=== PATIENT | female | born 1990 | race Caucasian/White ===

== ENCOUNTER 2016-06-01 07:44 | Inpatient (IN) | payer MEDICAID ==
[~2016-06-01] VITALS: Ht 172.7 cm; Wt 105.5 kg
[2016-06-01] VITALS (47 sets, daily range): BP systolic 93–136; BP diastolic 42–88; PULSE 81–104; TEMP 97.7–98.6
[~2016-06-01 07:44] MED LIST: AMOXICILLIN 50500 MG PO; FLAGYL500 MG; MOTRIN 800800 MG/TAB PO; NAPROSYN500 MG PO; NO HOME MEDICATIONS; NORCO 325 MG-51 TAB PO; PEN-VEE K500 MG PO; PRENATAL1 TA7 PO
[2016-06-01 08:22] LABS: AMPHETAMINE URINE NEGATIVE; BARBITURATES URINE NEGATIVE; BENZODIAZEPINES URINE NEGATIVE; BUPRENORPHINE URINE NEGATIVE; METHADONE URINE NEGATIVE; OPIATES URINE NEGATIVE; OXYCODONE URINE NEGATIVE; PHENCYCLIDINE URINE NEGATIVE; PROPOXYPHENE URINE NEGATIVE; THC CANNABINOIDS URINE NEGATIVE
[2016-06-01 08:35] LABS: BASO % 0.3 % (0.0-2.0); EOS # 0.1 (0.0-0.7); EOS % 1.1 % (0-4.0); GRAN # 8.9 (1.4-6.5); GRAN % 79.4 % (42.2-75.2); LYMPH # 1.7 (1.2-3.4); MEAN CELL VOLUME 83 fl (80.0-100.0); MEAN CORPUSCULAR HGB CONC 32 g/dl (33.0-37.0); MEAN PLATELET VOLUME 10.9 fl (7.4-10.4); MONO # 0.4 (0.1-0.6); MONO % 3.4 % (1.7-9.3); PLATELET COUNT 217 K/mm3 (130-400); RED BLOOD COUNT 3.87 M/mm3 (4.10-5.30); REDCELL DISTRIBUTION WIDTH-CV 15.4 % (11.5-14.5); WHITE BLOOD COUNT 11.2 K/mm3 (4.8-10.8)
[2016-06-01 08:37] LABS: HEMATOCRIT 32.2 % (37.0-47.0); HEMOGLOBIN 10.3 g/dl (12.5-16.0); MEAN CORPUSCULAR HEMOGLOBIN 27 pg (27.0-31.0)
[2016-06-02 01:50] VITALS: BP 105/58; PULSE 89; TEMP 97.8
[2016-06-02 07:20] VITALS: BP 105/54; PULSE 77; TEMP 97.8
[2016-06-02] MEDS ORDERED: PERCOCET 325 MG1 TA2 PO (07:44)
[2016-06-02] MEDS ORDERED: MOTRIN 800800 MG/TAB PO (07:44)
[2016-06-02 11:18] VITALS: BP 106/50; PULSE 96; TEMP 97.5
[2016-06-02 12:32] LABS: BASO # 0.1 (0.0-0.2); BASO % 0.5 % (0.0-2.0); EOS # 0.1 (0.0-0.7); EOS % 0.8 % (0-4.0); GRAN % 76.9 % (42.2-75.2); LYMPH # 2.1 (1.2-3.4); LYMPH % 15.8 % (20.0-51.0); MEAN CELL VOLUME 85 fl (80.0-100.0); MEAN CORPUSCULAR HGB CONC 32 g/dl (33.0-37.0); MEAN PLATELET VOLUME 11.5 fl (7.4-10.4); MONO # 0.7 (0.1-0.6); MONO % 5.3 % (1.7-9.3); PLATELET COUNT 214 K/mm3 (130-400); RED BLOOD COUNT 4.19 M/mm3 (4.10-5.30); REDCELL DISTRIBUTION WIDTH-CV 15.4 % (11.5-14.5)
[2016-06-02 12:37] LABS: HEMATOCRIT 35.4 % (37.0-47.0); HEMOGLOBIN 11.4 g/dl (12.5-16.0); MEAN CORPUSCULAR HEMOGLOBIN 27 pg (27.0-31.0)
[2016-06-02 20:00] VITALS: BP 115/56; PULSE 78; TEMP 97.5
[2016-06-03 07:40] VITALS: BP 120/80; PULSE 82; TEMP 98.3
== END 2016-06-03 17:20 | disposition home or self-care (01) | DRG 774 ==
LOC: LDR 07:44 → OB 18:11
PROVIDERS: Obstetrics & Gynecology
PROC: 10E0XZZ Delivery of Products of Conception, External Approach (ICD-10-PCS; principal; 2016-06-01)
PROC: 0UQMXZZ Repair Vulva, External Approach (ICD-10-PCS; 2016-06-01)
PROC: 3E033VJ Introduction of Other Hormone into Peripheral Vein, Percutaneous Approach (ICD-10-PCS; 2016-06-01)
DX: O48.0 Post-term pregnancy (principal); O72.1 Other immediate postpartum hemorrhage; O69.81X0 Labor and delivery complicated by cord around neck, without compression, not applicable or unspecified; O71.82 Other specified trauma to perineum and vulva; Z3A.40 40 weeks gestation of pregnancy; Z37.0 Single live birth
CPT/HCPCS: G0479; J2210; J2590; J2790; J2795; J7120

== ENCOUNTER 2016-06-05 16:16 | Emergency (ER) | payer MEDICAID ==
[~2016-06-05] VITALS: Ht 172.7 cm; Wt 100.9 kg
[2016-06-05 16:16] VITALS: TEMP 97.9
[~2016-06-05 16:16] MED LIST changes: +PERCOCET 325 MG1 TA2 PO
[2016-06-05] MEDS ORDERED: IBU800 M1 PO (16:34)
[2016-06-05 16:53] LABS: BASO % 0.3 % (0.0-2.0); EOS # 0.2 (0.0-0.7); EOS % 1.4 % (0-4.0); GRAN # 9.9 (1.4-6.5); GRAN % 84.3 % (42.2-75.2); LYMPH # 1.2 (1.2-3.4); LYMPH % 10.4 % (20.0-51.0); MEAN CELL VOLUME 83 fl (80.0-100.0); MEAN CORPUSCULAR HGB CONC 33 g/dl (33.0-37.0); MEAN PLATELET VOLUME 10.4 fl (7.4-10.4); MONO # 0.4 (0.1-0.6); MONO % 3.3 % (1.7-9.3); PLATELET COUNT 229 K/mm3 (130-400); RED BLOOD COUNT 3.84 M/mm3 (4.10-5.30); REDCELL DISTRIBUTION WIDTH-CV 15.3 % (11.5-14.5); WHITE BLOOD COUNT 11.8 K/mm3 (4.8-10.8)
[2016-06-05 16:54] LABS: HEMATOCRIT 31.9 % (37.0-47.0); HEMOGLOBIN 10.4 g/dl (12.5-16.0); MEAN CORPUSCULAR HEMOGLOBIN 27 pg (27.0-31.0)
[2016-06-05 16:58] LABS: PH 8 (5-8); SQUAMOUS EPITHELIAL None Seen /hpf; URINE APPEARANCE Clear; URINE BACTERIA None Seen /hpf; URINE BILIRUBIN Negative (NEGATIVE); URINE BLOOD 1+ (NEGATIVE); URINE COLOR Yellow; URINE GLUCOSE Negative (NEGATIVE); URINE KETONE Negative (NEGATIVE); URINE UROBILINOGEN Negative (NEGATIVE); URINE WBC 0-2 /hpf
[2016-06-05 17:11] LABS: ADJUSTED CALCIUM 9.7 mg/dL (8.4-10.2); ALBUMIN 3.4 gm/dL (3.5-5.0); BILIRUBIN,TOTAL 0.5 mg/dL (0.0-1.0); CALCIUM 9.2 mg/dL (8.4-10.2); CREATININE, serum 0.67 mg/dL (0.52-1.25); POTASSIUM 3.7 mmol/L (3.4-5.0); TOTAL PROTEIN 6.9 gm/dL (6.4-8.2)
[2016-06-05 19:15] VITALS: BP 119/74; PULSE 85
[2016-06-05] MEDS ORDERED: ULTRAM 50MG TAB50 MG PO (19:16)
== END 2016-06-05 19:35 | disposition home or self-care (01) ==
LOC: COL.ER 16:16
PROVIDERS: Emergency Medicine
DX: O99.89 Other specified diseases and conditions complicating pregnancy, childbirth and the puerperium (principal); R10.11 Right upper quadrant pain; R10.31 Right lower quadrant pain
CPT/HCPCS: J1170; J1885; Q9967

== ENCOUNTER 2016-09-02 17:01 | Emergency (ER) | payer MEDICAID ==
[~2016-09-02] VITALS: Ht 172.7 cm; Wt 90.9 kg
[~2016-09-02 17:01] MED LIST changes: +IBU800 M1 PO; +ULTRAM 50MG TAB50 MG PO
[2016-09-02 17:02] VITALS: BP 109/54; PULSE 77; TEMP 97.5
[2016-09-02] MEDS ORDERED: BRINTELLIX10 PO (17:05)
[2016-09-02 17:33] LABS: PH 5 (5-8); URINE APPEARANCE Hazy; URINE BACTERIA None Seen /hpf; URINE BILIRUBIN Negative (NEGATIVE); URINE BLOOD Negative (NEGATIVE); URINE COLOR Yellow; URINE GLUCOSE Negative (NEGATIVE); URINE KETONE Negative (NEGATIVE); URINE UROBILINOGEN Negative (NEGATIVE); URINE WBC 0-2 /hpf
[2016-09-02 17:46] LABS: BASO % 0.5 % (0.0-2.0); EOS # 0.2 (0.0-0.7); EOS % 2.7 % (0-4.0); GRAN # 4.4 (1.4-6.5); GRAN % 57.1 % (42.2-75.2); HEMATOCRIT 39.4 % (37.0-47.0); HEMOGLOBIN 12.6 g/dl (12.5-16.0); LYMPH # 2.5 (1.2-3.4); LYMPH % 32.7 % (20.0-51.0); MEAN CELL VOLUME 82 fl (80.0-100.0); MEAN CORPUSCULAR HEMOGLOBIN 26 pg (27.0-31.0); MEAN CORPUSCULAR HGB CONC 32 g/dl (33.0-37.0); MONO # 0.5 (0.1-0.6); MONO % 6.7 % (1.7-9.3); PLATELET COUNT 229 K/mm3 (130-400); REDCELL DISTRIBUTION WIDTH-CV 15.3 % (11.5-14.5); WHITE BLOOD COUNT 7.8 K/mm3 (4.8-10.8)
[2016-09-02 17:56] LABS: ADJUSTED CALCIUM 9.4 mg/dL (8.4-10.2); ALBUMIN 3.9 gm/dL (3.5-5.0); BILIRUBIN,TOTAL 0.5 mg/dL (0.0-1.0); CALCIUM 9.3 mg/dL (8.4-10.2); CREATININE, serum 0.73 mg/dL (0.52-1.25); POTASSIUM 3.8 mmol/L (3.4-5.0); TOTAL PROTEIN 6.9 gm/dL (6.4-8.2)
[2016-09-02] MEDS ORDERED: BENTYL 20MG20 MG/TAB PO (18:01)
== END 2016-09-02 18:08 | disposition home or self-care (01) ==
LOC: COL.ER 17:01
PROVIDERS: Emergency Medicine
DX: R10.84 Generalized abdominal pain (principal)
CPT/HCPCS: J0500

== ENCOUNTER 2016-09-06 18:25 | Emergency (ER) | payer MEDICAID ==
[~2016-09-06] VITALS: Ht 172.7 cm; Wt 90.9 kg
[~2016-09-06 18:25] MED LIST changes: +BENTYL 20MG20 MG/TAB PO; +BRINTELLIX10 PO
[2016-09-06 18:27] VITALS: TEMP 98.6
[2016-09-06 19:22] LABS: BASO % 0.4 % (0.0-2.0); EOS # 0.2 (0.0-0.7); EOS % 2.6 % (0-4.0); GRAN # 5.3 (1.4-6.5); GRAN % 63.5 % (42.2-75.2); HEMATOCRIT 38.1 % (37.0-47.0); HEMOGLOBIN 11.9 g/dl (12.5-16.0); LYMPH # 2.2 (1.2-3.4); LYMPH % 25.7 % (20.0-51.0); MEAN CELL VOLUME 83 fl (80.0-100.0); MEAN CORPUSCULAR HEMOGLOBIN 26 pg (27.0-31.0); MEAN CORPUSCULAR HGB CONC 31 g/dl (33.0-37.0); MEAN PLATELET VOLUME 10.1 fl (7.4-10.4); MONO # 0.6 (0.1-0.6); MONO % 7.4 % (1.7-9.3); PLATELET COUNT 216 K/mm3 (130-400); RED BLOOD COUNT 4.58 M/mm3 (4.10-5.30); REDCELL DISTRIBUTION WIDTH-CV 15.6 % (11.5-14.5); WHITE BLOOD COUNT 8.4 K/mm3 (4.8-10.8)
[2016-09-06 19:31] LABS: AMYLASE 59 U/L (30-110); LIPASE 66 U/L (23-300)
[2016-09-06 19:33] LABS: ADJUSTED CALCIUM 9.2 mg/dL (8.4-10.2); ALBUMIN 4.1 gm/dL (3.5-5.0); BILIRUBIN,TOTAL 0.6 mg/dL (0.0-1.0); CALCIUM 9.3 mg/dL (8.4-10.2); CREATININE, serum 0.75 mg/dL (0.52-1.25); POTASSIUM 3.9 mmol/L (3.4-5.0); TOTAL PROTEIN 7.3 gm/dL (6.4-8.2)
[2016-09-06 20:08] LABS: PH 6 (5-8); URINE APPEARANCE Hazy; URINE BACTERIA None Seen /hpf; URINE BILIRUBIN Negative (NEGATIVE); URINE BLOOD Negative (NEGATIVE); URINE COLOR Yellow; URINE GLUCOSE Negative (NEGATIVE); URINE KETONE Negative (NEGATIVE); URINE RBC 0-2 /hpf; URINE UROBILINOGEN Negative (NEGATIVE)
[2016-09-06 20:16] VITALS: BP 126/84; PULSE 70
== END 2016-09-06 20:23 | disposition home or self-care (01) ==
LOC: COL.ER 18:25
PROVIDERS: Emergency Medicine
DX: R10.33 Periumbilical pain (principal)
CPT/HCPCS: J2765; J3010; J7030; Q9967

== ENCOUNTER 2016-11-18 11:58 | Emergency (ER) | payer MEDICAID ==
[~2016-11-18] VITALS: Ht 172.7 cm; Wt 100.0 kg
[2016-11-18 12:01] VITALS: BP 123/57; PULSE 85; TEMP 98.1
[2016-11-19] MEDS ORDERED: CLINDAMYCIN150 MG PO (15:26)
[2016-11-19] MEDS ORDERED: NORCO 325 MG-51 TAB PO (15:26)
== END 2016-11-18 13:30 | disposition home or self-care (01) ==
LOC: COL.ER 11:58
DX: K08.89 Other specified disorders of teeth and supporting structures (principal); Z53.21 Procedure and treatment not carried out due to patient leaving prior to being seen by health care provider

== ENCOUNTER 2016-11-19 14:50 | Emergency (ER) | payer MEDICAID ==
[~2016-11-19] VITALS: Ht 172.7 cm; Wt 100.0 kg
[2016-11-19 14:53] VITALS: BP 119/70; PULSE 114; TEMP 98
[2016-11-19] MEDS ORDERED: NORCO 325 MG-51 TAB PO (15:26)
[2016-11-19] MEDS ORDERED: CLINDAMYCIN150 MG PO (15:26)
== END 2016-11-19 15:31 | disposition home or self-care (01) ==
LOC: COL.ER 14:50
DX: K08.89 Other specified disorders of teeth and supporting structures (principal); F17.210 Nicotine dependence, cigarettes, uncomplicated

== ENCOUNTER 2017-02-18 08:13 | Emergency (ER) | payer MEDICAID ==
[~2017-02-18] VITALS: Ht 172.7 cm; Wt 90.9 kg
[~2017-02-18 08:13] MED LIST changes: +CLINDAMYCIN150 MG PO
[2017-02-18 08:15] VITALS: BP 129/56; TEMP 98.2
[2017-02-18] MEDS ORDERED: PEN-VEE K500 MG PO (09:38)
[2017-02-18 09:40] VITALS: PULSE 88
== END 2017-02-18 09:40 | disposition home or self-care (01) ==
LOC: COL.ER 08:13
DX: J02.0 Streptococcal pharyngitis (principal); F17.210 Nicotine dependence, cigarettes, uncomplicated; Z90.89 Acquired absence of other organs

== ENCOUNTER 2017-07-22 20:46 | Emergency (ER) | payer MEDICAID ==
[~2017-07-22] VITALS: Ht 172.7 cm; Wt 97.7 kg
[2017-07-22 20:53] VITALS: BP 131/86; PULSE 73; TEMP 98
[2017-07-22] MEDS ORDERED: DESYREL 50MG50 MG PO (20:56)
[2017-07-22] MEDS ORDERED: AMOXICILLIN 50500 MG PO (21:41)
[2017-07-22] MEDS ORDERED: NORCO 325 MG-51 TAB PO (21:41)
== END 2017-07-22 21:53 | disposition home or self-care (01) ==
LOC: COL.ER 20:46
DX: K02.9 Dental caries, unspecified (principal); F17.210 Nicotine dependence, cigarettes, uncomplicated; Z88.1 Allergy status to other antibiotic agents

== ENCOUNTER 2017-09-29 14:43 | Emergency (ER) | payer MEDICAID ==
[~2017-09-29] VITALS: Ht 20.3 cm; Wt 90.9 kg
[~2017-09-29 14:43] MED LIST changes: +DESYREL 50MG50 MG PO
[2017-09-29 14:47] VITALS: BP 117/67; PULSE 74; TEMP 98.1
[2017-09-29] MEDS ORDERED: CYMBALTA 30MG30 MG PO (14:54)
[2017-09-29] MEDS ORDERED: CLEOCIN HCL300 MG PO (15:06)
[2017-09-29] MEDS ORDERED: NORCO 325 MG-51 TAB PO (15:06)
== END 2017-09-29 15:15 | disposition home or self-care (01) ==
LOC: COL.ER 14:43
DX: K08.89 Other specified disorders of teeth and supporting structures (principal); F17.210 Nicotine dependence, cigarettes, uncomplicated

== ENCOUNTER 2019-01-28 02:11 | Emergency (ER) | payer MEDICAID ==
[~2019-01-28] VITALS: Ht 172.7 cm; Wt 77.7 kg
[~2019-01-28 02:11] MED LIST changes: +CLEOCIN HCL300 MG PO; +CYMBALTA 30MG30 MG PO
[2019-01-28 02:28] VITALS: BP 119/69; TEMP 98.1
[2019-01-28] MEDS ORDERED: BACTRIM DS 8001 TAB PO (03:07)
[2019-01-28 03:27] VITALS: PULSE 91
== END 2019-01-28 03:27 | disposition home or self-care (01) ==
LOC: COL.ER 02:11
DX: L02.512 Cutaneous abscess of left hand (principal); F17.210 Nicotine dependence, cigarettes, uncomplicated; Z23 Encounter for immunization

== ENCOUNTER 2019-01-29 20:37 | Emergency (ER) | payer MEDICAID ==
[~2019-01-29] VITALS: Ht 172.7 cm; Wt 77.7 kg
[~2019-01-29 20:37] MED LIST changes: +BACTRIM DS 8001 TAB PO
[2019-01-29 20:58] VITALS: BP 116/57; TEMP 98.4
[2019-01-29 23:34] LABS: BASO % 0.5 % (0.0-2.0); EOS # 0.2 (0.0-0.7); GRAN # 5.4 (1.4-6.5); GRAN % 66.6 % (42.2-75.2); HEMOGLOBIN 10.4 g/dl (12.5-16.0); LYMPH # 1.8 (1.2-3.4); LYMPH % 22.5 % (20.0-51.0); MEAN CELL VOLUME 85 fl (80.0-100.0); MEAN CORPUSCULAR HEMOGLOBIN 26 pg (27.0-31.0); MEAN CORPUSCULAR HGB CONC 31 g/dl (33.0-37.0); MEAN PLATELET VOLUME 9.5 fl (7.4-10.4); MONO # 0.7 (0.1-0.6); MONO % 8.2 % (1.7-9.3); PLATELET COUNT 213 K/mm3 (130-400); RED BLOOD COUNT 3.96 M/mm3 (4.10-5.30); REDCELL DISTRIBUTION WIDTH-CV 15.1 % (11.5-14.5)
[2019-01-29 23:39] LABS: HEMATOCRIT 33.5 % (37.0-47.0)
[2019-01-29 23:52] LABS: ALBUMIN 4.1 gm/dL (3.5-5.0); BILIRUBIN,TOTAL 0.4 mg/dL (0.0-1.0); C-REACTIVE PROTEIN 1.5 mg/dL (0.0-0.9); CALCIUM 9.3 mg/dL (8.4-10.2); CREATININE, serum 0.91 (0.52-1.25); TOTAL PROTEIN 7.4 gm/dL (6.4-8.2)
[2019-01-30 00:14] LABS: ERYTHROCYTE SEDIMENTATION RATE 12 mm/hr (0-20)
[2019-01-30] MEDS ORDERED: AMOXICILLIN 8751 TAB PO (00:42)
[2019-01-30 00:50] VITALS: PULSE 80
== END 2019-01-30 00:50 | disposition home or self-care (01) ==
LOC: COL.ER 20:37
PROVIDERS: Physician Assistant
DX: L03.012 Cellulitis of left finger (principal)

== ENCOUNTER 2019-01-31 17:07 | Inpatient (IN) | payer MEDICAID ==
[~2019-01-31] VITALS: Ht 172.7 cm; Wt 77.7 kg
[~2019-01-31 17:07] MED LIST changes: +AMOXICILLIN 8751 TAB PO
[2019-01-31 17:26] VITALS: TEMP 97.8
[2019-01-31 19:07] LABS: BASO % 0.4 % (0.0-2.0); EOS # 0.1 (0.0-0.7); EOS % 1.4 % (0-4.0); GRAN # 5.8 (1.4-6.5); GRAN % 68.2 % (42.2-75.2); HEMOGLOBIN 10.8 g/dl (12.5-16.0); LYMPH # 1.9 (1.2-3.4); MEAN CELL VOLUME 86 fl (80.0-100.0); MEAN CORPUSCULAR HEMOGLOBIN 27 pg (27.0-31.0); MEAN CORPUSCULAR HGB CONC 31 g/dl (33.0-37.0); MEAN PLATELET VOLUME 9.8 fl (7.4-10.4); MONO # 0.6 (0.1-0.6); MONO % 6.9 % (1.7-9.3); PLATELET COUNT 218 K/mm3 (130-400); RED BLOOD COUNT 4.07 M/mm3 (4.10-5.30)
[2019-01-31 19:08] LABS: HEMATOCRIT 34.9 % (37.0-47.0)
[2019-01-31 19:19] LABS: ALBUMIN 4.2 gm/dL (3.5-5.0); BILIRUBIN,TOTAL 0.6 mg/dL (0.0-1.0); C-REACTIVE PROTEIN 2.2 mg/dL (0.0-0.9); CALCIUM 9.4 mg/dL (8.4-10.2); CREATININE, serum 0.87 (0.52-1.25); POTASSIUM 3.6 mmol/L (3.4-5.0); TOTAL PROTEIN 7.7 gm/dL (6.4-8.2)
[2019-01-31 19:37] LABS: ERYTHROCYTE SEDIMENTATION RATE 18 mm/hr (0-20)
[2019-01-31 22:34] VITALS: BP 111/68; PULSE 82
== END 2019-01-31 22:30 | disposition left against medical advice (07) | DRG 603 ==
LOC: COL.ER 17:07 → MEDICAL 19:24 → EDBEDREQ 20:02 → MEDICAL 22:30
PROVIDERS: Emergency Medicine; ADMIT Internal Medicine Pulmonary Disease
DX: L03.012 Cellulitis of left finger (principal); L02.512 Cutaneous abscess of left hand; Z53.21 Procedure and treatment not carried out due to patient leaving prior to being seen by health care provider; F15.10 Other stimulant abuse, uncomplicated
CPT/HCPCS: J3370; J7030; J7050

== ENCOUNTER 2020-06-15 21:26 | Emergency (ER) | payer MEDICAID ==
[~2020-06-15] VITALS: Ht 172.7 cm; Wt 68.2 kg
[2020-06-15 21:50] VITALS: TEMP 99.3
[2020-06-15] MEDS ORDERED: CLEOCIN HC150 MG/CAP PO (23:42)
[2020-06-15] MEDS ORDERED: TYLENOL 325MG325 MG PO (23:42)
[2020-06-15 23:53] VITALS: BP 129/70; PULSE 88
== END 2020-06-16 00:13 | disposition home or self-care (01) ==
LOC: COL.ER 21:26
DX: K02.9 Dental caries, unspecified (principal); F17.210 Nicotine dependence, cigarettes, uncomplicated; Z88.1 Allergy status to other antibiotic agents
CPT/HCPCS: J1885